=== PATIENT | male | born 1950 | race Caucasian/White ===

== ENCOUNTER 2019-01-27 01:37 | Inpatient (IN) | payer MEDICARE, OTHER ==
[~2019-01-27] VITALS: Ht 175.3 cm; Wt 80.0 kg
--- NOTE | 2019-01-27 01:56 | NUR ---
PT. BIB [facility] FROM [facility] FOR FURTHER EVAL OF ELEVATED LFT'S. PT. WAS TAKEN TO ED BY FOR C/O WEAKNESS INCREASING OVER THE LAST TWO WEEKS. HAD REPORTED 3 EPISODES OF DIARRHA AND 1 EPISODE OF VOMITING. PT. DENIES ANY PAIN. AT [facility] PT. RECEIVED 2L NS, 4.5 GRAMS ZOSYN @ 2236(01/26) AND VANCO 1 GRAM STARTED PRIOR TO LEAVING [facility] VIA [facility]. THEY HAD DONE BLOOD CULTURES THERE ACCORDING TO THE RECORDS. UPON ARRIVAL TO ED PT. HAD EKG COMPLETED. PT. IS A&OX 4 AND DENIES ANY PAIN. CONTINUOUS PULSE OX, B/P AND HEART MONIOTRS PLACED. CALL LIGHT PLACED IN REACH AND ALL SAFETY MEASURES OBSERVED. HX: STAGE 4 LUNG CA(CHEMO), DM, HTN, HIGH CHOLESTEROL, AND CHOLECYSTECTOMY.
--- NOTE | 2019-01-27 02:02 | NUR ---
PT. IS DNR/DNI
[2019-01-27 02:27] LABS: BASOPHILS # (AUTO) 0.02 x10^3/uL (0-0.1); BASOPHILS % (AUTO) 0 % (0-1); EOSINOPHILS # (AUTO) 0.01 x10^3/uL (0-0.4); EOSINOPHILS % (AUTO) 0 % (1-7); LYMPHOCYTES # (AUTO) 0.64 x10^3/uL (1-3.4); LYMPHOCYTES % (AUTO) 4 % (22-44); MD NO; MEAN CORPUSCULAR HEMOGLOBIN 31.1 pg (27.5-34.5); MEAN CORPUSCULAR HGB CONC 31.8 g/dL (33.2-36.2); MEAN CORPUSCULAR VOLUME 97.9 fL (81-97); MEAN PLATELET VOLUME 10.1 fL (7.4-10.4); MONOCYTES % (AUTO) 3 % (2-9); NEUTROPHILS # (AUTO) 13.45 x10^3/uL (1.8-6.8); NEUTROPHILS % (AUTO) 92 % (42-75); PLATELET COUNT 292 x10^3/uL (130-400); RED BLOOD COUNT 3.49 x10^6/uL (4.38-5.82); RED CELL DISTRIBUTION WIDTH 20.2 % (9.4-14.8)
--- NOTE | 2019-01-27 02:30 | NUR ---
/FAMILY ARRIVED AT BS AT THIS TIME. PER PT. ALSO HAS CHF. LAST ROUND OF CHEMO WAS December.
--- NOTE | 2019-01-27 02:34 | NUR ---
DISCUSSED B/P WITH DR. VALENTE. NEW ORDERS FOR MORE IVF; FLUID BOLUS HUNG AT THIS TIME.
[2019-01-27 02:38] LABS: ALANINE AMINOTRANSFERASE 443 U/L (12-78); ANION GAP 9 mmol/L (5-15); CALCIUM 8.5 mg/dL (8.5-10.1); CHLORIDE 102 mmol/L (98-107); CREATININE 0.84 mg/dL (0.7-1.3)
[2019-01-27] MEDS ORDERED: GABA300C10 PO ×2 (02:38→02:45)
[2019-01-27] MEDS ORDERED: GABA600T7 PO (02:38)
[2019-01-27] MEDS ORDERED: BUDE10.22 INH (02:38)
[2019-01-27 02:43] LABS: ALKALINE PHOSPHATASE 443 U/L (45-117); BILIRUBIN,TOTAL 2.1 mg/dL (0.2-1.0); TOTAL PROTEIN 6.7 g/dL (6.4-8.2); TROPONIN I < 0.015 ng/mL (0.000-0.045)
[2019-01-27] MEDS ORDERED: VITA1TAB19 PO (02:45)
[2019-01-27] MEDS ORDERED: LISI-170 PO (02:45)
[2019-01-27] MEDS ORDERED: ASPI-496 PO (02:45)
[2019-01-27] MEDS ORDERED: FURO-92 PO (02:45)
[2019-01-27] MEDS ORDERED: METF1000 PO (02:45)
[2019-01-27] MEDS ORDERED: AMLO-150 PO (02:45)
[2019-01-27] MEDS ORDERED: ATOR40TA78 PO (02:45)
[2019-01-27] MEDS ORDERED: CLON1TAB11 PO (02:45)
[2019-01-27] MEDS ORDERED: PRED10TA PO (02:45)
[2019-01-27] MEDS ORDERED: CYAN100028 PO (02:45)
[2019-01-27] MEDS ORDERED: POTA10TA PO (02:49)
[2019-01-27] MEDS ORDERED: SODIUM CHLORIDE 0.9% 1,000ML IVBOLUS ONE (03:00)
[2019-01-27] MEDS ORDERED: NIVO240V IV (03:02)
--- NOTE | 2019-01-27 03:23 | NUR ---
REPORT TO HARIKA MARTINEZ. FLOOR READY FOR PT. TRANSPORT.
[2019-01-27 04:46] VITALS: BP 100/62
[2019-01-27] MEDS ORDERED: morphine SULFATE 10 MG/ML, 1ML IVPush PRN (05:30)
[2019-01-27] MEDS ORDERED: NITROGLYCERIN 0.4 MG BOTTLE (25 TABS) SL PRN (05:30)
[2019-01-27] MEDS ORDERED: ZOSYN PER PHARMACY MC PRN (05:30)
[2019-01-27] MEDS ORDERED: LACTATED RINGERS 1,000 ML IV SCH (05:30)
[2019-01-27] MEDS ORDERED: ONDANSETRON 2MG/ML, 2ML IVPush PRN (05:30)
[2019-01-27] MEDS ORDERED: ALBUTEROL SULFATE 2.5 MG/3 ML ONE (06:47)
[2019-01-27] MEDS: ALBUTEROL SULFATE 2.5 MG/3 ML NPPB SCH ×3 (06:53→19:55)
[2019-01-27 07:11] LABS: TROPONIN I < 0.015 ng/mL (0.000-0.045)
[2019-01-27] MEDS: PIPERACILLIN/TAZO/PMX 4.5GM 100 ML IV SCH ×3 (08:06→19:48)
[2019-01-27 08:35] VITALS: BP 101/63
[2019-01-27] MEDS: BUDESONIDE 0.5 MG/2 ML INHA NPPB SCH ×2 (09:00→19:55)
[2019-01-27] MEDS: ASPIRIN 81 MG TABLET EC PO SCH (09:50)
[2019-01-27] MEDS: GABAPENTIN 300 MG CAPSULE PO SCH (09:51)
[2019-01-27] MEDS ORDERED: GABAPENTIN 300 MG CAPSULE PO SCH ×2 (11:30→21:00)
[2019-01-27 12:30] LABS: HEMOGLOBIN A1C 9.3 % (4.2-6.3)
[2019-01-27 13:18] VITALS: BP 90/53
[2019-01-27] MEDS: LACTATED RINGERS 1,000 ML IV SCH (14:01)
[2019-01-27 14:30] LABS: INTERNATIONAL NORMALIZED RATIO 1.14 (0.93-1.1); PROTHROMBIN TIME 11.9 Seconds (9.6-11.5); TROPONIN I < 0.015 ng/mL (0.000-0.045)
[2019-01-27] MEDS ORDERED: LIDOCAINE-MPF 1%, 5ML ONE (14:50)
[2019-01-27] MEDS ORDERED: INSULIN LISPRO 100 UNITS/ML, PEN SQ-INSULIN SCH (16:00)
[2019-01-27] MEDS: INSULIN LISPRO 100 UNITS/ML, PEN SQ-INSULIN SCH ×2 (17:15→19:48)
[2019-01-27 20:06] VITALS: BP 121/66
[2019-01-28] MEDS: PIPERACILLIN/TAZO/PMX 4.5GM 100 ML IV SCH ×4 (01:01→19:46)
[2019-01-28 01:08] VITALS: BP 107/70
[2019-01-28] MEDS: ALBUTEROL SULFATE 2.5 MG/3 ML NPPB SCH ×4 (02:30→21:00)
[2019-01-28] MEDS: LACTATED RINGERS 1,000 ML IV SCH ×2 (03:01→14:23)
[2019-01-28 05:47] LABS: BASOPHILS # (AUTO) 0.02 x10^3/uL (0-0.1); BASOPHILS % (AUTO) 0 % (0-1); EOSINOPHILS # (AUTO) 0.03 x10^3/uL (0-0.4); EOSINOPHILS % (AUTO) 0 % (1-7); LYMPHOCYTES # (AUTO) 0.81 x10^3/uL (1-3.4); LYMPHOCYTES % (AUTO) 9 % (22-44); MD NO; MEAN CORPUSCULAR HEMOGLOBIN 30.9 pg (27.5-34.5); MEAN CORPUSCULAR HGB CONC 31.9 g/dL (33.2-36.2); MEAN CORPUSCULAR VOLUME 96.9 fL (81-97); MEAN PLATELET VOLUME 9.9 fL (7.4-10.4); MONOCYTES % (AUTO) 6 % (2-9); NEUTROPHILS # (AUTO) 7.97 x10^3/uL (1.8-6.8); NEUTROPHILS % (AUTO) 85 % (42-75); PLATELET COUNT 244 x10^3/uL (130-400); RED BLOOD COUNT 3.37 x10^6/uL (4.38-5.82); RED CELL DISTRIBUTION WIDTH 20.2 % (9.4-14.8)
[2019-01-28 05:49] LABS: ALANINE AMINOTRANSFERASE 254 U/L (12-78); ALBUMIN 1.8 g/dL (3.4-5.0); ANION GAP 5 mmol/L (5-15); CALCIUM 8.9 mg/dL (8.5-10.1); CHLORIDE 103 mmol/L (98-107); CREATININE 0.63 mg/dL (0.7-1.3)
[2019-01-28 05:51] LABS: ALKALINE PHOSPHATASE 343 U/L (45-117); BILIRUBIN,TOTAL 0.9 mg/dL (0.2-1.0); TOTAL PROTEIN 6.3 g/dL (6.4-8.2)
[2019-01-28] MEDS: GABAPENTIN 300 MG CAPSULE PO SCH (07:31)
[2019-01-28] MEDS: ASPIRIN 81 MG TABLET EC PO SCH (07:32)
[2019-01-28] MEDS: INSULIN LISPRO 100 UNITS/ML, PEN SQ-INSULIN SCH ×4 (07:32→20:46)
[2019-01-28 08:25] VITALS: BP 152/78
[2019-01-28] MEDS: BUDESONIDE 0.5 MG/2 ML INHA NPPB SCH ×2 (09:00→21:00)
[2019-01-28] MEDS: PANTOPRAZOLE 40 MG IV IVPush SCH (14:21)
[2019-01-28 14:29] VITALS: BP 128/74
[2019-01-28 18:34] VITALS: BP 147/77
[2019-01-28 23:41] LABS: MICROSCOPIC INDICATED
[2019-01-28 23:48] LABS: CULTURE INDICATED? NO
[2019-01-29] MEDS: PANTOPRAZOLE 40 MG IV IVPush SCH (01:06)
[2019-01-29 01:41] VITALS: BP 160/73
[2019-01-29] MEDS: PIPERACILLIN/TAZO/PMX 4.5GM 100 ML IV SCH ×2 (01:54→08:01)
[2019-01-29] MEDS: ALBUTEROL SULFATE 2.5 MG/3 ML NPPB SCH ×4 (03:00→21:31)
[2019-01-29 03:47] LABS: ALANINE AMINOTRANSFERASE 175 U/L (12-78); ALBUMIN 1.8 g/dL (3.4-5.0); ANION GAP 4 mmol/L (5-15); CALCIUM 8.7 mg/dL (8.5-10.1); CHLORIDE 104 mmol/L (98-107)
[2019-01-29 03:50] LABS: ALKALINE PHOSPHATASE 299 U/L (45-117); BILIRUBIN,TOTAL 0.8 mg/dL (0.2-1.0); CREATININE 0.53 mg/dL (0.7-1.3); TOTAL PROTEIN 6.4 g/dL (6.4-8.2)
[2019-01-29 04:01] LABS: MEAN CORPUSCULAR HGB CONC 31.7 g/dL (33.2-36.2); MEAN CORPUSCULAR VOLUME 94.7 fL (81-97); MEAN PLATELET VOLUME 9.9 fL (7.4-10.4); PLATELET COUNT 236 x10^3/uL (130-400); RED BLOOD COUNT 3.32 x10^6/uL (4.38-5.82)
[2019-01-29 04:27] LABS: BASOPHILS # (AUTO) 0.04 x10^3/uL (0-0.1); BASOPHILS % (AUTO) 1 % (0-1); EOSINOPHILS # (AUTO) 0.06 x10^3/uL (0-0.4); EOSINOPHILS % (AUTO) 1 % (1-7); LYMPHOCYTES # (AUTO) 1.16 x10^3/uL (1-3.4); LYMPHOCYTES % (AUTO) 15 % (22-44); MD SCAN; MONOCYTES # (AUTO) 0.57 x10^3/uL (0.2-0.8); MONOCYTES % (AUTO) 8 % (2-9); NEUTROPHILS # (AUTO) 5.76 x10^3/uL (1.8-6.8); NEUTROPHILS % (AUTO) 76 % (42-75)
[2019-01-29] MEDS: LACTATED RINGERS 1,000 ML IV SCH ×2 (05:13→07:16)
[2019-01-29] MEDS: BUDESONIDE 0.5 MG/2 ML INHA NPPB SCH ×2 (07:05→21:31)
[2019-01-29] MEDS: INSULIN LISPRO 100 UNITS/ML, PEN SQ-INSULIN SCH ×4 (08:01→21:32)
[2019-01-29 08:13] VITALS: BP 155/77
[2019-01-29] MEDS: ASPIRIN 81 MG TABLET EC PO SCH (08:58)
[2019-01-29] MEDS: POTASSIUM CHLORIDE 20 MEQ TAB.ER.PRT PO SCH ×2 (08:58→16:20)
[2019-01-29] MEDS: GABAPENTIN 300 MG CAPSULE PO SCH (08:58)
[2019-01-29 13:34] VITALS: BP 125/75
[2019-01-29 14:09] LABS: CLOSTRIDIUM DIFFICILE ANTIGEN NEGATIVE; CLOSTRIDIUM DIFFICILE TOXIN NEGATIVE (Negative)
[2019-01-29] MEDS: PANTOPROZOLE 40MG TABLET PO SCH (15:14)
[2019-01-29 21:16] VITALS: BP 144/79
[2019-01-29] MEDS: AMOXICILLIN/CLAV 875-125MG TABLET PO SCH (21:25)
[2019-01-30 01:56] VITALS: BP 166/77
[2019-01-30] MEDS: ALBUTEROL SULFATE 2.5 MG/3 ML NPPB SCH ×3 (02:55→14:38)
[2019-01-30 05:49] LABS: BASOPHILS # (AUTO) 0.15 x10^3/uL (0-0.1); BASOPHILS % (AUTO) 2 % (0-1); EOSINOPHILS # (AUTO) 0.08 x10^3/uL (0-0.4); EOSINOPHILS % (AUTO) 1 % (1-7); LYMPHOCYTES # (AUTO) 1.61 x10^3/uL (1-3.4); LYMPHOCYTES % (AUTO) 20 % (22-44); MD NO; MEAN CORPUSCULAR HEMOGLOBIN 30.9 pg (27.5-34.5); MEAN CORPUSCULAR HGB CONC 31.7 g/dL (33.2-36.2); MEAN CORPUSCULAR VOLUME 97.2 fL (81-97); MONOCYTES # (AUTO) 0.74 x10^3/uL (0.2-0.8); MONOCYTES % (AUTO) 9 % (2-9); NEUTROPHILS # (AUTO) 5.56 x10^3/uL (1.8-6.8); NEUTROPHILS % (AUTO) 68 % (42-75); PLATELET COUNT 267 x10^3/uL (130-400); RED BLOOD COUNT 3.59 x10^6/uL (4.38-5.82); RED CELL DISTRIBUTION WIDTH 19.4 % (9.4-14.8)
[2019-01-30 06:00] LABS: CHLORIDE 105 mmol/L (98-107)
[2019-01-30 06:07] LABS: ALANINE AMINOTRANSFERASE 134 U/L (12-78); ALBUMIN 2.1 g/dL (3.4-5.0); ALKALINE PHOSPHATASE 274 U/L (45-117); ANION GAP 7 mmol/L (5-15); BILIRUBIN,TOTAL 0.9 mg/dL (0.2-1.0); CALCIUM 8.7 mg/dL (8.5-10.1); CREATININE 0.49 mg/dL (0.7-1.3); TOTAL PROTEIN 6.9 g/dL (6.4-8.2)
[2019-01-30] MEDS: INSULIN LISPRO 100 UNITS/ML, PEN SQ-INSULIN SCH ×4 (07:00→20:17)
[2019-01-30 07:57] VITALS: BP 132/68
[2019-01-30] MEDS ORDERED: METOPROLOL 1 MG/ML, 5ML IV PRN (08:00)
[2019-01-30] MEDS ORDERED: HALOPERIDOL 5 MG/ML IV PRN (08:00)
[2019-01-30] MEDS ORDERED: PROMETHAZINE 25 MG/ML, 1ML IV PRN (08:00)
[2019-01-30] MEDS ORDERED: MEPERIDINE/PF 25MG/0.5ML IVPush PRN (08:00)
[2019-01-30] MEDS ORDERED: HYDROmorphone 2 MG/ML, 1ML IVPush PRN (08:00)
[2019-01-30] MEDS ORDERED: FENTANYL PF 100 MCG/2ML IV PRN (08:00)
[2019-01-30] MEDS ORDERED: DIPHENHYDRAMINE 50 MG/ML, 1ML IVPush PRN (08:00)
[2019-01-30] MEDS ORDERED: OXYcodone 5 MG/5 ML ORAL.SOL UDC PO PRN (08:00)
[2019-01-30] MEDS ORDERED: PROCHLORPERAZINE 5 MG/ML, 2ML IV PRN (08:00)
[2019-01-30] MEDS ORDERED: hydrALAzine 20 MG/ML, 1ML IV PRN (08:00)
[2019-01-30] MEDS ORDERED: LABETALOL 5MG/ML, 20ML IV PRN (08:00)
[2019-01-30] MEDS ORDERED: HYDROCORTISONE 100 MG INJ. ONE ×2 (08:14→08:52)
[2019-01-30] MEDS ORDERED: ONDANSETRON 2MG/ML, 2ML ONE (08:14)
[2019-01-30] MEDS ORDERED: DEXAMETHASONE 4 MG/ML, 1ML ONE (08:14)
[2019-01-30] MEDS ORDERED: ESMOLOL 100 MG/10 ML ONE (08:14)
[2019-01-30] MEDS ORDERED: PROPOFOL 10 MG/ML, 20ML ONE (08:14)
[2019-01-30] MEDS ORDERED: ROCURONIUM 10MG/ML,5ML ONE (08:14)
[2019-01-30] MEDS ORDERED: SUCCINYLCHOLINE 20 MG/ML, 10ML ONE (08:14)
[2019-01-30] MEDS ORDERED: PHENYLEPHRINE 10 MG/ML ONE (08:14)
[2019-01-30] MEDS ORDERED: OMNIPAQUE 350 MG/ML, 50 ML BOTTLE ONE (08:25)
[2019-01-30] MEDS ORDERED: LISINOPRIL 20 MG TABLET PO SCH (09:00)
[2019-01-30] MEDS: BUDESONIDE 0.5 MG/2 ML INHA NPPB SCH ×2 (09:00→21:10)
[2019-01-30] MEDS: ASPIRIN 81 MG TABLET EC PO SCH (09:00)
[2019-01-30] MEDS ORDERED: INDOMETHACIN 50 MG SUPP.RECT ONE (09:30)
[2019-01-30] MEDS ORDERED: METOPROLOL 1 MG/ML, 5ML ONE (09:30)
[2019-01-30] MEDS ORDERED: INDOMETHACIN 50 MG SUPP.RECT PR ONE (10:00)
[2019-01-30] MEDS: POTASSIUM CHLORIDE 20 MEQ TAB.ER.PRT PO SCH ×2 (10:54→16:46)
[2019-01-30] MEDS: GABAPENTIN 300 MG CAPSULE PO SCH (10:54)
[2019-01-30] MEDS: PANTOPROZOLE 40MG TABLET PO SCH ×2 (10:54→20:14)
[2019-01-30] MEDS: AMOXICILLIN/CLAV 875-125MG TABLET PO SCH ×2 (10:54→20:14)
[2019-01-30] MEDS ORDERED: NICOTINE 21 MG/24 HR PATCH.TD24 TD SCH (12:00)
[2019-01-30 14:01] VITALS: BP 108/66
[2019-01-30] MEDS: METOPROLOL TARTRATE 25 MG TABLET PO SCH (16:46)
[2019-01-30 18:57] VITALS: BP 114/73
[2019-01-30] MEDS: LISINOPRIL 10 MG TABLET PO SCH (20:14)
[2019-01-30 20:18] VITALS: BP 112/57
[2019-01-30] MEDS ORDERED: AMLODIPINE 5 MG TABLET PO SCH (21:00)
[2019-01-31 00:19] VITALS: BP 103/66
[2019-01-31] MEDS: ALBUTEROL SULFATE 2.5 MG/3 ML NPPB SCH ×2 (02:55→07:20)
[2019-01-31 05:25] VITALS: BP 103/48
[2019-01-31 06:19] LABS: BASOPHILS # (AUTO) 0.01 x10^3/uL (0-0.1); BASOPHILS % (AUTO) 0 % (0-1); EOSINOPHILS % (AUTO) 0 % (1-7); LYMPHOCYTES # (AUTO) 0.94 x10^3/uL (1-3.4); LYMPHOCYTES % (AUTO) 9 % (22-44); MD NO; MEAN CORPUSCULAR HEMOGLOBIN 31.6 pg (27.5-34.5); MEAN CORPUSCULAR HGB CONC 32.2 g/dL (33.2-36.2); MEAN CORPUSCULAR VOLUME 97.9 fL (81-97); MEAN PLATELET VOLUME 10.1 fL (7.4-10.4); MONOCYTES # (AUTO) 0.85 x10^3/uL (0.2-0.8); MONOCYTES % (AUTO) 8 % (2-9); NEUTROPHILS % (AUTO) 83 % (42-75); PLATELET COUNT 248 x10^3/uL (130-400); RED BLOOD COUNT 3.45 x10^6/uL (4.38-5.82); RED CELL DISTRIBUTION WIDTH 19.7 % (9.4-14.8)
[2019-01-31 06:25] LABS: CALCIUM 8.7 mg/dL (8.5-10.1); CHLORIDE 107 mmol/L (98-107)
[2019-01-31 06:30] LABS: ALANINE AMINOTRANSFERASE 94 U/L (12-78); ALBUMIN 1.8 g/dL (3.4-5.0); ALKALINE PHOSPHATASE 223 U/L (45-117); ANION GAP 1 mmol/L (5-15); BILIRUBIN,TOTAL 0.8 mg/dL (0.2-1.0); CREATININE 0.54 mg/dL (0.7-1.3); TOTAL PROTEIN 6.4 g/dL (6.4-8.2)
[2019-01-31 06:56] VITALS: BP 111/65
[2019-01-31] MEDS: BUDESONIDE 0.5 MG/2 ML INHA NPPB SCH (07:20)
[2019-01-31] MEDS: ASPIRIN 81 MG TABLET EC PO SCH (09:12)
[2019-01-31] MEDS: LISINOPRIL 10 MG TABLET PO SCH (09:12)
[2019-01-31] MEDS: PANTOPROZOLE 40MG TABLET PO SCH (09:12)
[2019-01-31] MEDS: GABAPENTIN 300 MG CAPSULE PO SCH (09:12)
[2019-01-31] MEDS: AMOXICILLIN/CLAV 875-125MG TABLET PO SCH (09:12)
[2019-01-31] MEDS: METOPROLOL TARTRATE 25 MG TABLET PO SCH (09:13)
[2019-01-31] MEDS: INSULIN LISPRO 100 UNITS/ML, PEN SQ-INSULIN SCH (09:14)
[2019-01-31] MEDS ORDERED: PANT40TA5 PO (11:33)
[2019-01-31] MEDS ORDERED: METO25TA35 PO (11:33)
[2019-01-31] MEDS ORDERED: LISI-167 PO (11:33)
[2019-01-31] MEDS ORDERED: AMOX1TAB12 PO (11:33)
== END 2019-01-31 14:00 | disposition home or self-care (01) | DRG 871 ==
LOC: ED 01:49 → 3NW 03:02 → 4WST 01-30 10:25 → DCLOUNGE 01-31 13:41
PROVIDERS: ADMIT Family Medicine; ATTEND Family Medicine
PROC: 0W9B3ZZ Drainage of Left Pleural Cavity, Percutaneous Approach (ICD-10-PCS; 2019-01-27)
PROC: 0F778ZZ Dilation of Common Hepatic Duct, Via Natural or Artificial Opening Endoscopic (ICD-10-PCS; 2019-01-30)
PROC: BF131ZZ Fluoroscopy of Gallbladder and Bile Ducts using Low Osmolar Contrast (ICD-10-PCS; 2019-01-30)
PROC: 0FC98ZZ Extirpation of Matter from Common Bile Duct, Via Natural or Artificial Opening Endoscopic (ICD-10-PCS; 2019-01-30)
PROC: 0DB78ZX Excision of Stomach, Pylorus, Via Natural or Artificial Opening Endoscopic, Diagnostic (ICD-10-PCS; 2019-01-30)
PROC: 0F798ZZ Dilation of Common Bile Duct, Via Natural or Artificial Opening Endoscopic (ICD-10-PCS; principal; 2019-01-30 08:00)
DX: A41.9 Sepsis, unspecified organism (principal); G92 Toxic encephalopathy; R65.21 Severe sepsis with septic shock; J18.9 Pneumonia, unspecified organism; J96.21 Acute and chronic respiratory failure with hypoxia; E44.0 Moderate protein-calorie malnutrition; C34.90 Malignant neoplasm of unspecified part of unspecified bronchus or lung; E87.2 Acidosis; J44.0 Chronic obstructive pulmonary disease with (acute) lower respiratory infection; J90 Pleural effusion, not elsewhere classified; K80.31 Calculus of bile duct with cholangitis, unspecified, with obstruction; K92.0 Hematemesis; R04.2 Hemoptysis; D64.9 Anemia, unspecified; E11.65 Type 2 diabetes mellitus with hyperglycemia; E78.5 Hyperlipidemia, unspecified; E87.6 Hypokalemia; F17.210 Nicotine dependence, cigarettes, uncomplicated; I10 Essential (primary) hypertension; I35.1 Nonrheumatic aortic (valve) insufficiency; K29.70 Gastritis, unspecified, without bleeding; I48.2 Chronic atrial fibrillation; K72.90 Hepatic failure, unspecified without coma; Z66 Do not resuscitate; Z80.1 Family history of malignant neoplasm of trachea, bronchus and lung; Z83.3 Family history of diabetes mellitus; Z85.118 Personal history of other malignant neoplasm of bronchus and lung; Z86.73 Personal history of transient ischemic attack (TIA), and cerebral infarction without residual deficits; Z90.49 Acquired absence of other specified parts of digestive tract; Z91.19 Patient's noncompliance with other medical treatment and regimen; Z99.81 Dependence on supplemental oxygen; Z79.82 Long term (current) use of aspirin; Z79.899 Other long term (current) drug therapy; Z68.26 Body mass index [BMI] 26.0-26.9, adult
CPT/HCPCS: 32555; 36415; 74328; 82150; 82945; 83986; 84145; 96360; 99291; J7613; J7626; 71045; 71046; 74181; 76700; 80053; 81001; 82140; 82962; 83036; 83605; 83615; 83690; 83735; 84100; 84157; 84484; 85025; 85610; 85730; 87040; 87070; 87075; 87205; 87324; 88305; 88342; 89051; 93005; 93306; 94640; G0378; J1100; J2405; J2543; J2704; Q9967; C1769; C9113; J0330; J1720; J1815; J2370; J7030; J7120; J7512